=== PATIENT | female | born 1950 | race Caucasian/White ===

== ENCOUNTER 2019-12-28 06:36 | Day surgery (SDC) | payer MEDICARE ==
--- NOTE | 2019-12-22 17:08 | RAD REPORT ---
EXAM DESCRIPTION: RAD - Chest Pa And Lat (2 Views) - 12/22/2019 4:54 pm CLINICAL HISTORY: preop Chest pain. COMPARISON: No comparisons FINDINGS: The lungs are clear. The heart is upper limit of normal in size. No displaced fractures.
[2019-12-22 17:15] LABS: Basophils % 0.5 % (0-1.3); Hematocrit 39.9 % (36.0-45.0); Lymphocytes % 28.1 % (15.3-44.8); MPV 7.5 fL (7.6-11.3); RBC Red Blood Cell Count 4.85 M/uL (3.86-4.86)
--- OUTSIDE RECORDS SUMMARY | 2019-12-28 06:40 | XMS REPORT | Continuity of Care Document ---
:1950 Author Organization [facility] t Address [address] [place] [address] Care Team Providers Name Role Phone MARY KATE Primary Care Physician Unavailable Christos MAYROGA Attending Clinician Yenifer NORTH Attending Clinician MARY KATE Attending Clinician Unavailable MARY KATE Admitting Clinician Unavailable Problems This patient has no known problems. Allergies, Adverse Reactions, Alerts This patient has no known allergies or adverse reactions. Medications This patient has no known medications. Procedures This patient has no known procedures. Encounters Start End Encounter Admission Attending Care Care Encounter Source Date/Time Date/Time Type Type Clinicians Facility Department ID 2019-11-07 2019-11-07 Anesthesia Theodore Sher [facility] [id number] 09:17:00 09:45:[address] [id number] [place] [id number] Surgical [id number] Center 020 2017-09-07 2017-09-07 [id number] [address] 20:11:00 20:11:00 [facility] Results Test Description Test Time Test Comments Results Result Comments Source Pro-Bnp 2017-09-07 21:19:00 Test Item Value Reference Range Interpretation Comme nts NT ProBnp (test code = PBNP) 67 pg/mL 0-124 N
--- OUTSIDE RECORDS SUMMARY | 2019-12-28 06:40 | XMS REPORT | Summary of Care ---
:1950 Author Organization [facility] - Health Address [address] [place] [address] Care Team Providers Name Role Phone Fortino Caldera DO Primary Care Provider Reason for Visit Auth/Cert Status Reason Specialty Diagnoses / Procedures Referred By Abhinav ontact Referred To Contact Surgery Diagnoses Other fecal abnormalities hx colon polyps R19.5 (ICD-10-CM) - Other fecal abnormalities Adc Pre/ Pacu/Post Procedures [place] COLONOSCOPY W/BIOPSY SINGLE/MULTIPLE COLONOSCOPY [address]12 - [place] COLONOSCOPY W/BIOPSY SINGLE/MULTIPLE [address] [place] [address] [place] [address] Fax: Encounter Details Date Type Department Care Team Description 11/07/2019 Anesthesia [facility] Edu Camp MD [address] [place] [phone] Surgical Center Theodore Sher CRNA [address] [place] [phone] [phone] [place] [address] [place] [address] Allergies No Known Allergiesdocumented as of this encounter (statuses as of 11/11/2019) Medications Medication Sig Dispensed Refills Start Date End Date Status lisinopril 20 mg tablet Take 20 mg by 0 Active mouth daily. glimepiride 4 mg tablet Take 4 mg by 0 Active mouth daily with breakfast. carvedilol 25 mg tablet Take 25 mg by 0 Active mouth 2 (two) times daily with meals. LOVASTATIN ORAL Take by mouth. 0 Active isosorbide dinitrate 40 Take 40 mg by 0 Active mg CR capsule mouth 2 (two) times daily. aspirin 81 mg EC tablet Take 81 mg by 0 Active mouth daily. omega 3-add-oqm-fish Take by mouth. 0 Active oil (FISH OIL) 100-160-1,000 mg Cap documented as of this encounter (statuses as of 11/11/2019) Active Problems No known active problemsdocumented as of this encounter (statuses as of 11/11/2019) Social History Tobacco Use Types Packs/Day Years Used Date Former Smoker Smokeless Tobacco: Never Used Alcohol Use Drinks/Week oz/Week Comments No Sex Assigned at Date Recorded Not on file Job Start Date Occupation Industry Not on file Not on file Not on file Travel History Travel Start Travel End No recent travel history available. COVID-19 Exposure Response Date Recorded In the last month, have you been in contact with No / Unsure 11/07/2019 8:13 AM CDT someone who was confirmed or suspected to have Coronavirus / COVID-19? documented as of this encounter Last Filed Vital Signs Vital Sign Reading Time Taken Comments Blood Pressure - - Pulse - - Temperature - - Respiratory Rate 20 11/07/2019 9:43 AM CDT Oxygen Saturation - - Inhaled Oxygen Concentration - - Weight - - Height - - Body Mass Index - - documented in this encounter Plan of Treatment Health Maintenance Due Date Last Done Comments HEPATITIS C (HCV) SCREEN 1950 DTaP,Tdap,and Td Vaccines (1 - Tdap) 1961 Breast Cancer Screening (MAMMOGRAM) 1990 Zoster Recombinant Vaccine (SHINGRIX) (1 of 2) 01/13/2000 LUNG CANCER SCREEN: Recommended for age 55-80 with 30 2005 + pack year history Medicare Wellness Visit 2015 Osteoporosis Screening 2015 PNEUMOCOCCAL VACCINES 65+ (1 of 2 - PCV13) 2015 COLONOSCOPY 11/06/2029 11/07/2019 INFLUENZA VACCINE Completed 06/22/2019 documented as of this encounter Implants Implanted Type Area Rn Transplant Device Shelf Model / Serial Identifier Expiration / Lot Date Lens, Valerio #Sn60wf - [id number] LENS Left: Eye Valerio 07/12/2022 SN60WF / Implanted: Qty: 1 on 05/20/2018 by Danny Bolden MD at [facility] 8 [id number] / [id number] Lens, Valerio #[id number] - [id number] LENS Right: Valerio 08/12/2022 SN60WF / Implanted: Qty: 1 on 06/10/2018 by Danny Bolden MD at [facility] Eye 5 [id number] / [id number] documented as of this encounter Results Not on filedocumented in this encounter Administered Medications Medication Order MAR Action Action Date Dose Rate Site ePHEDrine 25 mg/5 mL (5 mg/mL) Given 11/07/2019 9:25 AM CDT 5 m g syringe ONCE INTRA PROCEDURE, Starting 11/07/19 at 0921, Until 11/07/19 at 0945, Routine, Intra-op Given 11/07/2019 9:21 AM CDT 5 mg Given 11/07/2019 9:15 AM CDT 5 mg lactated ringers IV infusion New Bag 11/07/2019 9:17 AM CDT IV Infusion, CONTINUOUS PRN, Starting 11/07/19 at 0917, Until 11/07/19 at 0945, Routine, Intra-op propofol IV infusion Given 11/07/2019 9:35 AM CDT 50 mg Intravenous, ONCE INTRA PROCEDURE, Starting 11/07/19 at 0920, Until 11/07/19 at 0945, Routine, Intra-op Given 11/07/2019 9:31 AM CDT 50 mg Given 11/07/2019 9:30 AM CDT 50 mg documented in this encounter Insurance Payer Benefit Plan / Subscriber ID Effective Phone Address T ype Group Dates [facility] [id number] 2019-Andres Wi lindsey [facility] - MEDICARE [facility] documented as of this encounter
--- OUTSIDE RECORDS SUMMARY | 2019-12-28 06:40 | XMS REPORT | Summary of Care ---
:1950 Author Organization [facility] - Health Address [address] [place] [address] Care Team Providers Name Role Phone Fortino Caldera DO Primary Care Provider Reason for Visit Auth/Cert Status Reason Specialty Diagnoses / Procedures Referred By Abhinav ontact Referred To Contact Surgery Diagnoses Other fecal abnormalities hx colon polyps R19.5 (ICD-10-CM) - Other fecal abnormalities Adc Pre/ Pacu/Post Procedures [place] COLONOSCOPY W/BIOPSY SINGLE/MULTIPLE COLONOSCOPY [address] - [place] COLONOSCOPY W/BIOPSY SINGLE/MULTIPLE [address] [place] [address] [place] [address] Fax: Encounter Details Date Type Department Care Team Description 11/07/2019 Anesthesia [facility] Edu Camp MD [address] [place] [phone] Surgical Center Theodore Sher CRNA [address] [place] [phone] [place] [address] [place] [address] Allergies No Known Allergiesdocumented as of this encounter (statuses as of 11/14/2019) Medications Medication Sig Dispensed Refills Start Date [...] mg by 0 Active mouth daily. omega 2-vwo-xsc-fish Take by mouth. 0 Active oil (FISH OIL) 100-160-1,000 mg Cap documented as of this encounter (statuses as of 11/14/2019) Active Problems No known active problemsdocumented as of this encounter (statuses as of 11/14/2019) Social History Tobacco Use Types Packs/Day Years [...] of this encounter Implants Implanted Type Area Foreign Broadcast Specialist Device Shelf Model / Serial Identifier Expiration / Lot Date Lens, Valerio #Sn60wf - [id number] LENS Left: Eye Valerio 07/12/2022 SN60WF / Implanted: Qty: 1 on 05/20/2018 by Danny Bolden MD at [facility] 4 [id number] / [id number] Lens, Valerio #Sn60wf - [id number] LENS Right: Valerio 08/12/2022 SN60WF / Implanted: Qty: 1 on 06/10/2018 by Danny Bolden MD at [facility] Eye 8 [id number] / [id number] documented as of this encounter Results [...] Effective Phone Address T ype Group Dates [facility] [id number] 2019-Andres Hi lindsey [facility] documented as of this encounter
--- OUTSIDE RECORDS SUMMARY | 2019-12-28 06:40 | XMS REPORT | Summary of Care ---
:1950 Author Organization [facility] Address [address] [place] [address] Care Team Providers Name Role Phone Fortino Caldera DO Primary Care Provider Reason for Visit Auth/Cert Status Reason Specialty Diagnoses / Procedures Referred By C ontact Referred To Contact Surgery Diagnoses Other fecal abnormalities hx colon polyps R19.5 (ICD-10-CM) - Other fecal abnormalities Adc Pre/ Pacu/Post Procedures [place] COLONOSCOPY W/BIOPSY SINGLE/MULTIPLE COLONOSCOPY [address] - [place] COLONOS[place] W/BIOPSY SINGLE/MULTIPLE [address] [facility] [place] [address] Fax: Encounter Details Date Type Department Care Team Description 11/07/2019 Hospital Encounter [facility] MD Abhinav [address] [facility] [address] [facility] [place] [address] [id number] [place] [address] Allergies No Known Allergiesdocumented as of this encounter (statuses as of 11/08/2019) Medications Medication Sig Dispensed Refills Start Date [...] mg by 0 Active mouth daily. omega 9-mdq-epz-fish Take by mouth. 0 Active oil (FISH OIL) 100-160-1,000 mg Cap documented as of this encounter (statuses as of 11/08/2019) Active Problems No known active problemsdocumented as of this encounter (statuses as of 11/08/2019) Social History Tobacco Use Types Packs/Day Years [...] Sign Reading Time Taken Comments Blood Pressure 158/94 11/07/2019 10:10 AM CDT Pulse 64 11/07/2019 10:10 AM CDT Temperature 36.3 C (97.4 F) 11/07/2019 9:49 AM CDT Respiratory Rate 16 11/07/2019 10:10 AM CDT Oxygen Saturation 100% 11/07/2019 10:10 AM CDT Inhaled Oxygen Concentration - - Weight 103 kg (227 lb 1.2 oz) 11/04/2019 11:05 AM CDT Height 154.9 cm (5' 0.98") 11/04/2019 11:05 AM CDT Body Mass Index 42.93 11/04/2019 11:05 AM CDT documented in this encounter Discharge Instructions Emma-Randi Martinez RN - 11/07/2019 .General Discharge Instructions Procedure: Colonoscopy The medication you were given for the procedure may make you dizzy or sleepy. Do not drive, operate machinery or walk for long distances in the heat for at least 12 hours. Many patients feel very tired following these procedures and need to rest for several hours. The procedure may cause mild discomfort in the abdominal area, but the pain should disappear within several hours. Notify your physician if you have pain or tenderness for more than six hours or ifyou notice an increase in abdominal size. Advance your diet: You may resume a normal diet but first start with a light meal that is not greasy or fatty. If you are passing gas and this light meal does not bother your stomach you may continue with a normal diet for the next meal. Resume your home medications. The arm vein where medication was given may be tender. Apply a warm compress. If the pain persists for more than 12 hours, call your doctor. You will probably belch or pass gas during the first few hours after the exam. Light exercise like walking may help relieve bloating or gas pains. Avoid extreme heat when you exercise. If you had a polypectomy or a biopsy, you may notice a small amount of red blood coming from the rectum. You may also have a small amount of blood in your first bowel movement. If bleeding increases, call your doctor. If you had a polypectomy, do not take non-steroidal antiinflammatory medications containing Ibuprofen (such as Nuprin, Motrin, Advil) or medications with Aspirin (such as Bufferin) for 7 days, unless your doctor tells you otherwise. For minor pains, you may use medications that do not contain aspirin or ibuprofen (such as Tylenol or Datril). Special Instructions: Although these symptoms may not be related to your procedure, call your doctor immediately if you- Become short of breath Get dizzy Have a fever Experience chest pain Have rapid or irregular heart rate If you had biopsies your physician will call you with the results in approximately one week and advise you of when to follow-up. Contact Information Gastroenterology Department [phone] Colon Rectal Surgery [phone] After Hours (Non-Urgent Concerns): [facility] Access Line [phone] and ask to speak to the physician covering High Fiber Diet (25-30 grams/ day) FRUIT AMOUNT FIBER (gms) VEGETABLES AMOUNT FIBER (gms) Apple with skin 1 medium 5.00 Avocado 1 medium 11.84 Apricot 3 medium 0.98 Beets, cooked 1 cup 2.85 Apricots, dried 5 pieces 2.89 Beet greens 1 cup 4.20 Banana 1 medium 3.92 Bok Elsi, cooked 1 cup 2.76 Blueberries 1 cup 4.18 Broccoli, cooked 1 cup 4.5 Cantaloupe, cubes 1 cup 1.28 Brussel Sprouts 1 cup 2.84 Figs, dried 2 medium 3.74 Cabbage, cooked 1 cup 4.20 Grapefruit medium 6.12 Carrot 1 medium 2.00 [place], navel 1 medium 3.40 Carrots, cooked 1 cup 5.22 [place] 1 medium 2.00 Cauliflower, cooked 1 cup 3.43 Peaches, dried 3 pieces 3.18 Nilo Slaw 1 cup 4.00 Pear 1 medium 5.08 [place], sweet 1 cup 4.66 [place] 1 medium 1.00 Green beans 1cup 3.95 Raisins 1.5 oz box 1.60 Celery 1 stalk 1.02 Raspberries 1 cup 8.34 Kale, cooked 1 cup 7.20 Strawberries 1 cup 3.98 Onions, raw 1 cup 2.88 Peas, cooked 1 cup 8.84 CEREAL, GRAINS, PASTA AMOUNT FIBER (gms) Peppers, cooked 1 cup 2.62 Bran Cereal 1 cup 19.94 Pop corn, air popped 3 cups 3.60 Bread, whole wheat 1 slice 2.00 Potato, baked w/ skin 1 medium 4.80 Oats, rolled dry 1 cup 12.00 Spinach, cooked 1 cup 4.32 Pasta, whole wheat 1 cup 6.34 Summer squash 1 cup 2.52 Rice, dry brown 1 cup 7.98 Sweet Potato, cooked 1 cup 5.94 [place] Chard, cooked 1 cup 3.68 BEANS, NUTS, SEEDS AMOUNT FIBER (gms) Tomato 1 medium 1.00 Almonds 1 oz 4.22 Winter Squash 1 cup 5.74 Black Beans, cooked 1 cup 14.92 Zucchini, cooked 1 cup 2.63 Cashews 1 oz 1.00 Flax Seeds 3 tbs 6.97 Garbanzo beans, cooked 1 cup 5.80 Kidney beans, cooked 1 cup 13.33 Lentils, red cooked 1 cup 15.64 Pearl beans, cooked 1 cup 13.16 Peanuts 1 oz 2.30 Pistachio nuts 1 oz 3.10 Pumpkin seeds cup 4.12 Soybeans, cooked 1 cup 7.62 [place] seeds cup 3.00 Walnuts 1 oz 3.08 General Surgical Discharge Instructions: ? The medication that was used will be acting in your system for the next 24 hours, so you might feel a little drowsy, with impaired judgment and/ or motor function. This feeling should wear off. Because the medication is still in your system for the next 24 hours you SHOULD NOT: o Drive a car, operate machinery or power tools. o Drink any alcoholic beverages. o Make any important decisions or sign any legal documents. ? You should rest the remainder of the day and not engage in any physical activity. YOU ARE RESPONSIBLE FOR HAVING SOMEONE AT HOME WITH YOU DURING THE AFTERNOON AND NIGHT IMMEDIATELY FOLLOWING YOUR SURGERY. Patients should cough and deep breathe every 2-4 hours while awake to avoid respiratory complications. ? Because the medications used could produce some residual nausea and vomiting after you go home, you should eat lightly today, starting with clear liquids (broth, soft drinks, apple juice, jello) and toast or crackers, progressing to your normal diet as tolerated. If you get sick, wait a couple of hours and then begin to eat. After 24 hours the nausea should be gone. If your nausea persists, callyour physician. ? You may experience some pain and your physician will advise you on what to take for discomfort. This should be taken as directed. If the pain is not relieved, contact your physician. You may also have a sore throat from the airway/ breathing tube that was in place. You may use lozenges, throat spray (Chloraseptic), or warm salt water gargles for symptomatic relief. ? If you are unable to urinate within five hours after your procedure, call your physician. ? The type of surgery performed will determine how much bleeding (if any) to expect. Normally, somespotting might occur. If your dressing pad become saturated, notify your physician. Elevate surgical site, if applicable, to reduce swelling and pain. ? Preventing a surgical site infection: o Dont smoke. It is best to quit at least 30 days before surgery, but quitting after surgery is also helpful. o If you are a diabetic, keep your blood sugar well controlled. WASH YOUR HANDS. o Keep your wound clean and remember to wash your hands before and after contact with the area. o Call your doctor if you have signs of infection: ? increased tenderness at the surgical site ? red streaks or increased redness of the area ? bad-smelling discharge from the incision ? fever of 101 or higher TOBACCO AVOIDANCE Exposure to tobacco either from smoking or from second hand (environmental)smoke or smokeless tobacco (snuff) is damaging to your health. This information is to encourage everyone to avoid tobacco exposure. It is recommended that you: If you smoke or use smokeless tobacco, we encourage you to quit. If you have already quit smoking, continue your good work! If you do not smoke or use smokeless tobacco, do not start. Avoid secondhand smoke. Additional Resources: You may want to contact these organizations for further information on smoking and how to quit- [place] [employer] - http://www.lungusa.org/stop-smoking/ [place] [employer] - http://www.cancer.org/Healthy/StayAwayfromTobacco/index [place] [employer] - http://www.heart.org/HEARTORG/GettingHealthy/QuitSmoking/Quit-Smoking _[facility]_001085_SubHomePage.jsp AttachmentsThe following attachments cannot be sent through Care Everywhere. Colon and Rectal Polyps, Understanding (Palestinian)documented in this encounter Plan of Treatment Name Type Priority Associated Diagnoses Date/Ti az SURGICAL PATHOLOGY EXAM LAB STAT 10/12 9:35 AM CDT Name Type Priority Associated Diagnoses Order S [facility] SURGICAL PATHOLOGY EXAM LAB Routine ONCE for 1 Occurrences starting 2019 Health Maintenance Due Date Last Done Comments [...] of this encounter Implants Implanted Type Area Manager Payroll Device Shelf Model / Serial Identifier Expiration / Lot Date Lens, Valerio #Sn60wf - [id number] LENS Left: Eye Valerio 07/12/2022 SN60WF / Implanted: Qty: 1 on 05/20/2018 by Danny Bolden MD at [facility] 0 [id number] / [id number] Lens, Valerio #Sn60wf - [id number] LENS Right: Valerio 08/12/2022 SN60WF / Implanted: Qty: 1 on 06/10/2018 by Danny Bolden MD at [facility] Eye 3 [id number] / [id number] documented as of this encounter Procedures Procedure Name Priority Date/Time Associated Comments Diagnosis COLONOSCOPY (ENDO) Routine 11/07/2019 8:59 AM CDT COLONOSCOPY Level 4 (within 11/07/2019 8:58 same, see post OP 0-5 days) AM CDT note POCT GLUCOSE(AGE Routine 11/07/2019 8:20 Results for this >30DAYS) AM CDT procedure are i n the results section. CONSENT/REFUSAL FOR Routine 11/07/2019 7:52 DIAGNOSIS AND AM CDT TREATMENT ASSIGNMENT OF Routine 11/07/2019 7:52 BENEFITS AM CDT DAY SURGERY - ADC Routine 11/07/2019 12:01 AM CDT documented in this encounter Results POCT Glucose (11/07/2019 8:20 AM CDT) Pathologist Sig nature POCT Glu (age>30days) 81 70 - 110 mg/dL Specimen Blood - CAPILLARY documented in this encounter Visit Diagnoses Diagnosis Adenomatous polyp of ascending colon - P rimary documented in this encounter Administered Medications Medication Order MAR Action Action Date Dose Rate Site water for irrigation irrigation Given 11/07/2019 9:18 AM CDT 1, 000 mL solution PRN, Starting Thu11/07/19 at 0918, Until Discontinued, Routine, Intra-op Medication Order MAR Action Action Date Dose Rate Site lactated ringers IV infusion New Bag 11/07/2019 8:24 AM CDT 1,000 mL 20 mL/hr 1,000 mL at 20 mL/hr, 1,000 mL, IV Infusion, ONCE, 1 dose, 11/07/19 at 0815, Routine, Endo Pre-op documented in this encounter Insurance Payer Benefit Plan / Subscriber ID Effective Phone Address T ype Group Dates [facility] [id number] 2019-Andres portillo [facility] - MEDICARE nt HMO MANAGED MEDICARE ADVANTAGE documented as of this encounter
--- OUTSIDE RECORDS SUMMARY | 2019-12-28 06:40 | XMS REPORT | Summary of Care ---
:1950 Author Organization [facility] - [facility] Address [address] [place] [id number] Care Team Providers Name Role Phone Fortino Caldera DO Primary Care Provider Reason for Visit Reason Comments Pre-op Clearance COVID19 TESTING Encounter Details Date Type Department Care Team Description 11/04/2019 Nurse Visit [facility] Surgical Jacoby Bond MD [id number] [place] [address] COVID-19 (Primary Dx) [facility] General Surgery [address] [place] [address], [address] [place] [address] Allergies No Known Allergiesdocumented as of this encounter (statuses as of 11/04/2019) Medications Medication Sig Dispensed Refills Start Date [...] mg by 0 Active mouth daily. omega 2-tyl-jyb-fish Take by mouth. 0 Active oil (FISH OIL) 100-160-1,000 mg Cap documented as of this encounter (statuses as of 11/04/2019) Active Problems No known active problemsdocumented as of this encounter (statuses as of 11/04/2019) Social History Tobacco Use Types Packs/Day Years [...] been in contact with No / Unsure 11/04/2019 10:56 AM CDT someone who was confirmed or suspected to have Coronavirus / COVID-19? documented as of this encounter Last Filed Vital Signs Vital Sign Reading Time Taken Comments Blood Pressure - - Pulse - - Temperature 36.2 C (97.2 F) 11/04/2019 10:56 AM CDT Respiratory Rate - - Oxygen Saturation - - Inhaled Oxygen Concentration - - Weight - - Height - - Body Mass Index - - documented in this encounter Progress Notes Kayleigh Valdivia - 11/04/2019 11:15 AM Bahman Sydney Loza is a 69 year old female comes to clinic independent in ambulation for PRE OP TESTING. Pt comes alone . Pt in NAD w/ pain reported 0/10. Pt preferred language is Mongolian. Pt. denies fall in last 12 months. Allergies and medications reviewed and updated. Verbal consent obtained for collection of nasopharyngeal swab. Information in link below was given. [email or web address].cdc.gov/coronavirus/2019-ncov/downloads/srvmfaupd-ukr-osuibfjd-2019- nCoV.pdf Kayleigh Valdivia 11/04/2019 10:58 AM documented in this encounter Plan of Treatment Date Type Specialty Care Team Description 11/07/2019 Hospital Encounter Surgery Jacoby Garcia MD [address] [place] [phone] 11/07/2019 Surgery Surgery Olga Garcia MD COLONOSCOPY [address] [place] [phone] Name Type Priority Associated Diagnoses Order S chedule CORONAVIRUS COVID-19 LAB Routine COVID-19 Expecte d: 11/04/2019, TESTING Expires: 2020 Health Maintenance Due Date Last Done Comments HEPATITIS C (HCV) SCREEN 1950 DTaP,Tdap,and Td Vaccines (1 - Tdap) 1961 Breast Cancer Screening (MAMMOGRAM) 1990 COLONOSCOPY 01/13/2000 Zoster Recombinant Vaccine (SHINGRIX) (1 of 2) 01/13/2000 LUNG CANCER SCREEN: Recommended for age 55-80 with 30 2005 + pack year history Medicare Wellness Visit 2015 Osteoporosis Screening 2015 PNEUMOCOCCAL VACCINES 65+ (1 of 2 - PCV13) 2015 INFLUENZA VACCINE Completed 06/22/2019 documented as of this encounter Implants Implanted Type Area Manager Van Device Shelf Model / Serial Identifier Expiration / Lot Date Lens, Valerio #[id number] - [id number] LENS Left: Eye Valerio 07/12/2022 SN60WF / Implanted: Qty: 1 on 05/20/2018 by Danny Bolden MD at [facility] 3 [id number] / [id number] Lens, Valerio #[id number] - [id number] LENS Right: Valerio 08/12/2022 [id number] / Implanted: Qty: 1 on 06/10/2018 by Danny Bolden MD at [facility] Eye 8 [id number] / [id number] documented as of this encounter Results Not on filedocumented in this encounter Visit Diagnoses Diagnosis COVID-19 - Primary documented in this encounter Insurance Payer Benefit Plan / Subscriber ID Effective Phone Address T ype Group Dates [facility] [id number] 2019-Andres portillo [facility] - MEDICARE HMO MANAGED MEDICARE ADVANTAGE documented as of this encounter
[2019-12-28] MEDS ORDERED: NA CHLORIDE 0.9% 1,000 ML ONE (07:03)
[2019-12-28] MEDS ORDERED: CEFAZOLIN/SWI 1gm 1 GM/10 ML SYR ONE (07:03)
[2019-12-28] MEDS ORDERED: FENTANYL CITR 100 MCG/2 ML ONE (08:01)
[2019-12-28] MEDS ORDERED: MIDAZOLAM HCL 2 MG/2 ML INJ ONE (08:01)
[2019-12-28] MEDS ORDERED: propofoL 200 MG/20 ML VIAL IV ONE (08:01)
[2019-12-28] MEDS ORDERED: LIDOCAINE 2% MPF 5 ML VIAL ONE (08:02)
[2019-12-28] MEDS ORDERED: ONDANSETRON 4 MG/2 ML VIAL ONE (08:43)
[2019-12-28] MEDS ORDERED: dexAMETHasone 4 MG/ML VIAL ONE (08:43)
[2019-12-28] MEDS ORDERED: KETOROLAC 30 MG/ML INJ ONE (08:47)
--- NOTE | 2019-12-28 08:59 | P.BOP ---
Preoperative diagnosis: ulcerated mass left hand and upper chest Postoperative diagnosis: left hand Sq Cell carcinoma, chest basal cell carcinoma Primary procedure: 1. Wide excision with frozen section left hand Sq Cell carcinoma Secondary procedure: 2. Wide excision with frozen section upper chest basal cell carcinoma Estimated blood loss: <10cc Specimen: left hand Sq Cell carcinoma, chest basal cell carcinoma Findings: left hand Sq Cell carcinoma, chest basal cell carcinoma, margins free per p Anesthesia: General Complications: None Transferred to: Recovery Room Condition: Good
[2019-12-28 09:57] VITALS: O2SAT 96
[2019-12-28 10:17] VITALS: BP 135/62; TEMP 98
--- NOTE | 2019-12-28 10:23 | OP ---
Date of Procedure: 12/28/2019 Surgeon: Kolby David MD Preoperative Diagnosis: Tender ulcerative masses of the left hand and upper chest. Postoperative Diagnoses: 1.Left hand squamous cell carcinoma. 2.Chest basal cell carcinoma. Procedures: 1.Wide excision with frozen section of left hand squamous cell carcinoma. 2.Wide excision with frozen section of upper chest basal cell carcinoma. Estimated Blood Loss: Less than 10 mL. Specimens: Left hand squamous cell carcinoma, chest basal cell carcinoma. Findings: Left hand squamous cell carcinoma and chest basal cell carcinoma, margins free of tumor pe r Dr. Robins, pathologist. Anesthesia: General plus local. Indications: This is a case of a 69-year-old patient, who had 2 ulcerated masses tender, 1 in the le ft hand, another one in the chest. Recurrent ulceration tender, she wants them excised. We offered her wide excision with frozen section due to possibility of cancer. She understands the benefits, al ternatives, and risks of excision which include, but not limited to infection, bleeding, damage to ad jacent structures, anesthesia complications, nonhealing wound, NM, and even . She also understa nds this may not relieve any symptoms, she might need more than 1 surgical intervention. Both areas were marked by me and the patient in the holding room. We kept the procedures apart to avoid cross c ontamination. Description Of Procedure: Patient was brought to the operating room, placed in supine position. Ane sthesia was done without complication. Both areas were prepped and draped in a sterile fashion separ ately to avoid cross contamination. We started first with the left hand. The left hand was done in a wedge fashion after injecting with local anesthetic. The specimen was sent for orientation. The a jairo was irrigated, hemostasis obtained, and then the area was closed with horizontal mattress suture due to the large gap of the area with 3-0 nylon. Sponge count and instrument counts were correct. P atient tolerated the procedure well. After that, we went then to the chest to avoid cross contaminat ion. We prepped the area individually. We wanted to make a wedge incision in the skin. Incision wa s carried down to subcutaneous tissue. The mass was excised and marked for orientation. Area was ir rigated, hemostasis obtained, and the area was closed with 3-0 nylon interrupted multiple times. Pat ient tolerated both procedures well. Pathology came back as left hand squamous cell carcinoma with m argins free of tumor and open chest basal cell carcinoma with margins free of tumor. That is per pat rhett. Final report will come in the next few days. Patient tolerated the procedure well. Tikamarino dickens was sent to recovery in stable condition. JENNIFER/MINDY Voice ID: [id number] Report ID: [id number]
--- NOTE | 2019-12-28 10:24 | DS ---
Diagnosis: Squamous cell carcinoma and basal cell carcinoma. Procedures: Wide excision of left hand squamous cell carcinoma and upper chest basal cell carcinoma. Disposition: Home. Activity: As tolerated. No heavy lifting. Followup: Follow up in my office in 1 week. Call for appointment [phone]. Keep area dry for 48 ho urs, then may shower. Medications: Include Tylenol No.3 q.4 hours p.r.n. pain, Bactrim DS p.o. b.i.d. JENNIFER/MINDY Voice ID: [id number] Report ID: [id number]
[2019-12-28] MEDS ORDERED: CODEINE 30MG/APAP 300MG TAB ONE (10:40)
== END 2019-12-28 11:05 | disposition home or self-care (01) ==
LOC: OR 06:36
PROVIDERS: ATTEND Surgery
PROC: 0JBK0ZZ Excision of Left Hand Subcutaneous Tissue and Fascia, Open Approach (ICD-10-PCS; principal; 2019-12-28 08:15)
PROC: 0JB60ZZ Excision of Chest Subcutaneous Tissue and Fascia, Open Approach (ICD-10-PCS; 2019-12-28 08:15)
DX: C44.629 Squamous cell carcinoma of skin of left upper limb, including shoulder (principal); C44.519 Basal cell carcinoma of skin of other part of trunk; Z11.59 Encounter for screening for other viral diseases; I10 Essential (primary) hypertension; E11.9 Type 2 diabetes mellitus without complications
CPT/HCPCS: 93005; 85025; 80048; 36415; 82947 ×2; 88331; 88332; 88305; 71046; 11623; 11603; U0002; J2704; J2250; J3010; J0690; J7030; J2405